=== PATIENT | male | born 1975 | race Two or more races ===

== ENCOUNTER 2019-10-15 21:47 | Emergency (ER) | payer SELFPAY ==
[~2019-10-15] VITALS: Ht 165.1 cm; Wt 96.2 kg
[2019-10-15] MEDS ORDERED: ONDANSETRON HCL/PF 4 MG/2 ML VIAL ONE (23:21)
[2019-10-15] MEDS ORDERED: MORPHINE SULFATE INJ 4 MG/ML DISP.SYRIN ONE (23:21)
[2019-10-15] MEDS ORDERED: ONDANSETRON HCL/PF 4 MG/2 ML VIAL IVP ONE (23:30)
[2019-10-15] MEDS ORDERED: IV NS 0.9% 500 ML BAG IV ONE (23:30)
[2019-10-15] MEDS ORDERED: MORPHINE SULFATE INJ 2 MG/ML DISP.SYRIN IV ONE (23:30)
[2019-10-15 23:33] LABS: BASOPHILS # (AUTO) 0.1 /CMM (0.0-0.2); EOSINOPHILS % (AUTO) 3.9 % (0.0-6.0); HEMATOCRIT 49 % (39-51); HEMOGLOBIN 16.7 g/dL (13.5-17.5); LYMPHOCYTES # (AUTO) 3.2 /CMM (0.8-4.8); LYMPHOCYTES % (AUTO) 31.2 % (20.0-44.0); MEAN CORPUSCULAR HGB CONC 34 g/dl (31.0-36.0); MEAN CORPUSCULAR VOLUME 87 fL (80-96); MONOCYTES # (AUTO) 0.7 /CMM (0.1-1.30); MONOCYTES % (AUTO) 7.3 % (2.0-12.0); NEUTROPHILS # (AUTO) 5.8 /CMM (1.8-8.9); NEUTROPHILS % (AUTO) 56.6 % (43.0-81.0); PLATELET COUNT (AUTO) 241 /CMM (150-450); RED BLOOD CELL COUNT(AUTO) 5.61 MIL/uL (4.5-6.0); WHITE BLOOD COUNT (AUTO) 10.3 K/uL (4.3-11.0)
--- NOTE | 2019-10-15 23:33 | NUR ---
PT PRESENTED TO THE ER WITH A C/O CRAMPING, ACHING ABD PAIN SINCE SUNDAY. PT STATED THAT HE TOOK TEA 5 HRS AGO TO HELP WITH HIS ABD PAIN. PT HAS HAD DIARRHEA X1 [employer] M[employer]'S FURNISHINGS. PT AMBULATED TO ER 11. URINE SAMPLE WAS OBTAINED AFTER TRIAGE AND SENT TO LAB.
--- NOTE | 2019-10-15 23:37 | NUR ---
PT IS IN CT.
[2019-10-15 23:50] LABS: CALCIUM, SERUM 9.2 mg/dL (8.5-10.1); CREATININE 0.9 mg/dL (0.6-1.3)
[2019-10-16 00:01] LABS: BILIRUBIN,DIRECT 0.1 mg/dL (0.0-0.2); BILIRUBIN,TOTAL 0.9 mg/dL (0.2-1.0); TOTAL PROTEIN, SERUM 8.2 g/dL (6.4-8.2)
--- NOTE | 2019-10-16 01:13 | NUR ---
IV removed. Catheter intact and site benign. Pressure and 4x4 applied to site. No bleeding noted. Patient discharged to home in stable condition. Written and verbal after care instructions given. Patient verbalizes understanding of instruction and Rx. Pt's is driving pt home. VSS. PT stated that the DR told him to return tomorrow for f/u.
[2019-10-16 01:15] VITALS: BP 119/77
== END 2019-10-16 01:16 | disposition home or self-care (01) ==
LOC: ER 21:50
DX: K55.069 Acute infarction of intestine, part and extent unspecified (principal); R11.10 Vomiting, unspecified; F10.10 Alcohol abuse, uncomplicated; R10.84 Generalized abdominal pain; Y90.9 Presence of alcohol in blood, level not specified
CPT/HCPCS: 36415; 71045; 74176; 80048; 80076; 83690; 85025; 85730; 96374; 96375; 99284; J2270; J2405; J7040